=== PATIENT | male | born 1980 ===

== ENCOUNTER 2016-10-29 07:45 | Inpatient (IN) | payer OTHER ==
[2016-10-19 08:14] VITALS: BMI 43.6
[~2016-10-29 07:45] MED LIST: Bupivacaine HCl 0.25% PF (10 ml) Inj ONE; Dexamethasone 4 mg/1 ml IVPB ONE; Lactated Ringer's 1,000 ML IV ONE; Propofol 10 mg/ml Inj (20 ML) ONE; ceFAZolin IV 2 gm in Dextrose 0 GM/0 ML BAG IVPB ONE
[2016-10-29] MEDS ORDERED: ceFAZolin IV 2 gm in Dextrose 1 GM/50 ML BAG IVPB ONE (07:56)
[2016-10-29] MEDS ORDERED: Propofol 10 mg/ml Inj (20 ML) ONE (08:33)
[2016-10-29] MEDS ORDERED: Rocuronium 10 mg/ml (10 ml) ONE (09:04)
[2016-10-29] MEDS ORDERED: Succinylcholine Chloride 20 mg/ml Syr (5 ml) IV ONE (09:04)
[2016-10-29] MEDS ORDERED: Labetalol 25mg/5ml Syringe ONE (09:04)
[2016-10-29] MEDS ORDERED: Neostigmine Methylsulfate 3mg/3ml Syringe IV ONE (09:22)
[2016-10-29] MEDS ORDERED: HYDROmorphone 0.5 mg/0.5 ml ISec ONE ×2 (10:17→12:43)
--- NOTE | 2016-10-29 15:05 | OP ---
PROCEDURE DATE: 10/29/2016 PREOPERATIVE DIAGNOSIS: Morbid obesity. POSTOPERATIVE DIAGNOSES: Morbid obesity. PROCEDURES: 1. Laparoscopic sleeve gastrectomy. 2. Transversus abdominis plane block. 3. Intraoperative esophagogastroduodenoscopy. SURGEON: Dr. Kyle. COLD SAW OPERATOR: Dr. Yan. ANESTHESIA: General. FINDINGS: Negative intraoperative leak test. No evidence of ____. COMPLICATION: None. DISPOSITION: Stable to PACU. INDICATIONS: This is a 36-year-old male weighing 313 with a BMI of 44.8 who failed conservative meth ods of weight loss. The patient met NIH criteria for weight loss surgery. After all risks, benefits and alternatives were explained to the patient, patient agreed to procedure listed below. COMPLICATIONS: None. SPECIMENS: Partial gastrectomy. PROCEDURE: The patient was brought to the operating room and placed in supine position on the operat ing room table. General endotracheal anesthesia was induced by the anesthesia team. Precautions were taken to pad the patient well using gel padding of the back, feet and arms to prevent postoperative pain. The patient was prepped and draped in the usual sterile fashion. The clinical assistant professor placed a Veress needle in the left upper quadrant below the costal margin to establish pneumoperitoneum to 15 mmHg. A 12 mm Optiview port along with zero-degree laparoscope was inserted i n the midline superior to the umbilicus with no evidence of injury upon entering. Next, the scope wa s changed to 45 degrees and the Veress needle was removed under vision. Under laparoscopic guidance, a transversus abdominis plane block was performed by injecting 30 mL of 0.25% Marcaine into multiple sites along the right flank. The solution was injected into the plane between the internal oblique and the transversus abdominis muscles to aid in postoperative analgesia. This procedure was repeated on the left flank for maximum efficacy. A 15 mm trocar was placed in the right midclavicular line a vilma the umbilicus. Additionally, two 5 mm trocars were placed in the right and left flank below the costal margin. All trocars were placed under direct vision. A liver retractor was (Sabrina) was inserted through a separate stab incision 1 cm below the xiphoi d process and was attached to a retracting device secured to the left side of the table. The entire procedure was performed laparoscopically. The primary surgeon operated from the right side of the [facility] and the clinical assistant professor operated from the left side of the patient. The lesser sac was entered by first dividing the gastrocolic ligament along the midpoint of the great er curvature of the stomach with a harmonic scalpel. The dissection was performed close to the stoma ch to avoid the gastroepiploic artery. Dissection proceeded proximally towards the angle of His. Th e clinical assistant professor dissected out and ligated the short gastric arteries with the harmonic scalpel. Care was taken to avoid injury to the spleen. We then returned to the point where the dissection began more distally on the greater curvature. The clinical assistant professor used the harmonic scalpel and continued distally al cristina the greater curvature to approximately 4 to 6 cm from the pylorus. At this point, a 40 Polish bougie was inserted by the anesthesia team and was aligned medially and pa ssed under vision to the region of the pylorus. The clinical assistant professor grasped the greater curvature of the s tomach with a loop grasper and retracted laterally. The sleeve gastrectomy was performed using seque ntial firings of a 60 mm EndoGIA stapler ([employer]) bolstered with Seamguard. For the initial two firi ngs a green load was used where the stomach tissue was thicker. The second firing utilized a gold lo ad. The remaining firings were done using a blue load. Care was taken to avoid narrowing the distal aspect of the sleeve. The anterior and posterior vagus nerves were identified and preserved through out their course. Sequential firings of the stapler continued up to the angle of His. Care was taken to ensure equal tension along the entire staple line to prevent kinking of the sleeve. An upper end oscopy was performed (to be dictated separately) in order to evaluate the gastric mucosa as well as p erform a leak test. The distal stomach was occluded and the upper abdomen was filled with saline bruna ution in order to submerge the entire staple line. Air was insufflated and no bubbles were visualize d. The saline was suctioned off and the scope removed. The resected stomach was placed in a large E ndo Catch bag for later removal. The area was carefully inspected and hemostasis ensured. The liver retractor and all ports were simona miley under vision and pneumoperitoneum evacuated. The specimen was removed through the 15 mm port sit e and was sent off the field. The fascia of the 15 mm port site was closed using #0 Vicryl interrupt ed suture on the Endoclose device. The skin on all port sites was closed with #4-0 Monocryl subcutic ular sutures followed by Dermabond for dressing. All sponge and instrument counts were correct at th e end of the procedure. The patient tolerated the procedure well, was extubated in the operating sanjuana m and was transferred to the recovery room in stable condition. Robert Kyle DO cc: [id number] TT: 10/29/2016 11:07:05 ruth
[2016-10-29] MEDS ORDERED: HYDROmorphone 1 mg/ml ISec IVP PRN (23:11)
[2016-10-30] MEDS: Lactated Ringer's 1,000 ML IV SCH ×3 (00:40→06:54)
[2016-10-30 07:38] LABS: BASO % 0.1 % (0.0-2.0); HEMATOCRIT 42.9 % (35.0-51.0); LYMPH # 1.5 K/uL (1.0-4.3); LYMPH % 14.2 % (20.0-40.0); MEAN CELL VOLUME 93.1 fL (80.0-94.0); MEAN CORPUSCULAR HEMOGLOBIN 31.5 pg (27.0-31.0); MEAN CORPUSCULAR HGB CONC 33.9 g/dL (33.0-37.0); MONO # 1.2 K/uL (0.0-0.8); MONO % 11.3 % (0.0-10.0); RED CELL DISTRIBUTION WIDTH 13.3 % (11.5-14.5)
[2016-10-30 07:43] LABS: CHLORIDE 100 mmol/L (98-107); POTASSIUM 3.9 mmol/L (3.6-5.2); SODIUM 134 mmol/L (132-148)
[2016-10-30 07:46] LABS: BLOOD UREA NITROGEN 10 mg/dL (9-20); CARBON DIOXIDE 24 mmol/L (22-30); GFR AFRICAN-AMERICAN > 60
[2016-10-30 07:47] LABS: GLUCOSE,RANDOM 96 mg/dL (75-110)
[2016-10-30 07:49] LABS: WHITE BLOOD COUNT 10.4 K/uL (4.8-10.8)
[2016-10-30] MEDS ORDERED: Iohexol 240 (50 ml) ONE (08:22)
[2016-10-30] MEDS ORDERED: Iohexol 240 200 ML IJ ONE (08:23)
[2016-10-30] MEDS ORDERED: Barium Sulfate for Susp 96% w/w 176g Bottle PR ONE (08:23)
[2016-10-30 08:29] VITALS: BP 120/74; RESP 18; TEMP 98.3; O2SAT 94
--- NOTE | 2016-10-30 09:21 | RAD ---
PROCEDURE: Limited upper GI series HISTORY: s/p gastric sleeve COMPARISON: Not available TECHNIQUE: Swallowing oral contrast material was performed with the patient in the upright position, under fluoroscopic monitoring. Examination with water soluble contrast material was followed by examination with low-density barium suspension. FINDINGS: Patient is status post gastric sleeve procedure. There is no evidence of gastric perforation. There is no spillage of contrast material from the gastric lumen into the peritoneal cavity. The duodenal bulb and sweep are filled with unremarkable appearance. There is no evidence of hiatal hernia. No gastroesophageal reflux was witnessed during this examination. IMPRESSION: No evidence of gastric perforation/leakage.
[2016-10-30] MEDS ORDERED: Enoxaparin 40 mg Syringe SC SCH ×2 (10:00)
--- NOTE | 2016-10-30 10:38 | CP.PCM.CON ---
History of Present Illness - History of Present Illness History of Present Illness: MOrbid Obesity S/P Lap Sleeve 10/29/16 No issue overnight mild nausea resolved this am Past Patient History - Past Medical History & Family History Past Medical History?: Yes - Past Social History Smoking Status: Never Smoked - CARDIAC Hx Cardiac Disorders: No - PULMONARY Hx Respiratory Disorders: No - NEUROLOGICAL Hx Neurological Disorder: No - HEENT Hx HEENT Problems: No - RENAL Hx Chronic Kidney Disease: No - ENDOCRINE/METABOLIC Hx Endocrine Disorders: No - HEMATOLOGICAL/ONCOLOGICAL Hx Blood Disorders: No Hx Human Immunodeficiency Virus (HIV): (ON PREVENTATIVE MEDICINE) - INTEGUMENTARY Hx Dermatological Problems: No - MUSCULOSKELETAL/RHEUMATOLOGICAL Hx Musculoskeletal Disorders: No Hx Falls: No - GASTROINTESTINAL Hx Gastrointestinal Disorders: No - GENITOURINARY/GYNECOLOGICAL Hx Genitourinary Disorders: No - PSYCHIATRIC Hx Psychophysiologic Disorder: No Hx Substance Use: No - SURGICAL HISTORY Hx Surgeries: Yes Hx Appendectomy: Yes (2011) Other/Comment: TUMMY TUCK /EXC GYNECOMASTIA - ANESTHESIA Hx Anesthesia: Yes Hx Anesthesia Reactions: No Hx Malignant Hyperthermia: No Has any member of the family had a problem w/ anesthesia?: No Meds Allergies/Adverse Reactions: Allergies Allergy/AdvReac Type Severity Reaction Status Date / Time codeine Allergy Intermediate SWELLING Verified 10/19/16 08:12 - Medications Medications: Current Medications Enoxaparin Sodium (Lovenox) 40 mg SC DAILY [facility] Last Admin: 10/30/16 09:34 Dose: Not Given Famotidine (Pepcid) 20 mg IVP Q12H [facility] Last Admin: 10/30/16 00:20 Dose: Not Given Hydromorphone HCl (Dilaudid) 1 mg IVP Q4 PRN Lactated Ringer's (Lactated Ringer's) 1,000 mls @ 150 mls/hr IV .Q6H40M [facility] Last Admin: 10/30/16 06:54 Dose: 150 mls/hr Ketorolac Tromethamine (Toradol) 30 mg IVP Q6 [facility] Last Admin: 10/30/16 06:41 Dose: 30 mg Metoclopramide HCl (Reglan) 10 mg IVP Q6 [facility] Last Admin: 10/30/16 06:39 Dose: 10 mg Ondansetron HCl (Zofran Inj) 4 mg IVP Q6H PRN PRN Reason: Nausea/Vomiting Physical Exam - Head Exam Head Exam: NORMAL INSPECTION, NORMOCEPHALIC - Eye Exam Eye Exam: EOMI, Normal appearance, PERRL - ENT Exam ENT Exam: Mucous Membranes Moist - Neck Exam Neck exam: Positive for: Normal Inspection - Respiratory Exam Respiratory Exam: Clear to PA & Lateral, NORMAL BREATHING PATTERN, UNREMARKABLE - Cardiovascular Exam Cardiovascular Exam: REGULAR RHYTHM - GI/Abdominal Exam GI & Abdominal Exam: Normal Bowel Sounds Additional comments: Incision clean dry and intact - Extremities Exam Extremities exam: Positive for: normal inspection - Neurological Exam Neurological exam: CN II-XII Intact - Skin Skin Exam: Normal Color Results - Vital Signs Recent Vital Signs: Last Vital Signs Temp 98.3 F 10/30/16 07:15 Pulse 54 L 10/30/16 07:15 Resp 18 10/30/16 07:15 BP 120/74 10/30/16 07:15 Pulse Ox 94 L 10/30/16 07:15 - Labs Result Diagrams: 10/30/16 07:05 10/30/16 07:05 Labs: Laboratory Results - last 24 hr 10/29/16 10/30/16 10/30/16 07:40 07:05 07:05 WBC 10.4 D RBC 4.61 Hgb 14.5 Hct 42.9 MCV 93.1 MCH 31.5 H MCHC 33.9 RDW 13.3 Plt Count 235 MPV 9.0 Neut % (Auto) 74.4 Lymph % (Auto) 14.2 L [place] % (Auto) 11.3 H Eos % (Auto) 0.0 Baso % (Auto) 0.1 Neut # 7.8 H Lymph # 1.5 [place] # 1.2 H Eos # 0.0 Baso # 0.0 Sodium 134 Potassium 3.9 Chloride 100 Carbon Dioxide 24 Anion Gap 14 BUN 10 Creatinine 0.7 L Est GFR ( Amer) > 60 Est GFR (Non-Af Amer) > 60 Random Glucose 96 Calcium 8.0 L Blood Type O POSITIVE Antibody Screen Negative - Imaging and Cardiology Abdominal x-ray Status: Report reviewed by me (NO LEAK NO OBSTRUCTION) Assessment/Plan - Assessment and Plan (Free Text) Assessment: 36 y.o male S/P Lap sleeve doing well Plan: SP LAP Sleeve POD 1 Start Clear diet DC Telel Ambulate Incentive spirometery DC once tolerates 24 oz PO liquid Instruction given - Date & Time Date: 10/30/16 Time: 10:47
[2016-10-30 14:01] VITALS: PULSE 58
== END 2016-10-30 15:30 | disposition home or self-care (01) | DRG 621 ==
LOC: C.6T 22:29
PROVIDERS: ADMIT Surgery; ATTEND Surgery
PROC: 0DB64Z3 Excision of Stomach, Percutaneous Endoscopic Approach, Vertical (ICD-10-PCS; principal; 2016-10-29 07:45)
PROC: 3E0T3CZ (ICD-10-PCS; 2016-10-29 07:45)
PROC: 0DJ08ZZ Inspection of Upper Intestinal Tract, Via Natural or Artificial Opening Endoscopic (ICD-10-PCS; 2016-10-29 07:45)
DX: E66.01 Morbid (severe) obesity due to excess calories (principal); Z68.41 Body mass index [BMI] 40.0-44.9, adult